=== PATIENT | male | born 1980 | race Hispanic/Latino ===

== ENCOUNTER 2017-10-29 15:11 | Emergency (ER) | payer OTHER ==
[~2017-10-29] VITALS: Ht 185.4 cm; Wt 99.8 kg
--- NOTE | 2017-10-29 15:31 | ED GI/GU/ABDOMINAL COMPLAINT ---
History of Present Illness General Chief Complaint: General Adult Stated Complaint: VOMITTING SINCE SAT AFTER HEAVY ETOH USE Source: patient Exam Limitations: no limitations Vital Signs & Intake/Output Vital Signs & Intake/Output Vital Signs Date Time Temp Pulse Resp B/P B/P Pulse O2 O2 Flow FiO2 Mean Ox Delivery Rate 10/29 1646 97 Room Air 10/29 1525 98.1 87 18 134/90 99 Room Air Allergies Coded Allergies: No Known Allergies (10/29/17) Reconcile Medications Omeprazole 40 MG CAPSULE.DR 1 CAP PO DAILY ACIF RELFUX Ondansetron (Zofran Odt) 4 MG TAB.RAPDIS 1 TAB SL TID NAUSEA Triage Note: PT STATES HE WENT TO A [place] ON SATURDAY AND OVER DID IT WITH DRINKING AND HAS NOT BEEN ABLE TO STOP DRINKING SINCE. Triage Nurses Notes Reviewed? yes Duration: day(s):, constant Timing: recent history Quality/Severity: moderate, sharpness Location: epigastric Radiation: no radiation Activities at Onset: none HPI: 37-year-old male comes into the emergency room for further evaluation of upper abdominal pain. Some associated nausea vomiting. Patient reports she drank a heavy amount of alcohol on Saturday and the symptoms began Saturday. Pain is sharp. Asked details. Comes in for further evaluation due to persistent symptoms. Denies any prior abdominal surgeries. Nothing seems to make the symptoms better or worse. (Иван Engel) Past History Travel History Traveled to [place] past 21 day No Medical History Any Pertinent Medical History? none Surgical History Surgical History: no abdominal surgeries Psychosocial History What is your primary language Tajik Tobacco Use: Never used ETOH Use: occasional use Illicit Drug Use: denies illicit drug use Family History Hx Contributory? No (Иван Engel) Review of Systems Review of Systems Constitutional: Reports: no symptoms. EENTM: Reports: no symptoms. Respiratory: Reports: no symptoms. Cardiovascular: Reports: no symptoms. GI: Reports: see HPI. Genitourinary: Reports: no symptoms. Musculoskeletal: Reports: no symptoms. Skin: Reports: no symptoms. Neurological/Psychological: Reports: no symptoms. Hematologic/Endocrine: Reports: no symptoms. Immunologic/Allergic: Reports: no symptoms. All Other Systems: Reviewed and Negative (Иван Engel) Physical Exam Physical Exam General Appearance: well developed/nourished, no apparent distress, alert, awake Head: atraumatic, normal appearance Eyes: Bilateral: normal appearance, EOMI. Ears, Nose, Throat, Mouth: hearing grossly normal, moist mucous membrane Neck: normal inspection Respiratory: no respiratory distress Cardiovascular: regular rate/rhythm Gastrointestinal: soft, non-tender Back: normal inspection Extremities: normal range of motion Skin: intact Core Measures ACS in differential dx? No Sepsis Present: No Sepsis Focused Exam Completed? No (Иван Engel) Progress Differential Diagnosis: biliary colic, gastritis, pancreatitis, PUD/GERD Plan of Care: Orders Procedure Date/time Status TROPONIN LEVEL 10/29 1523 Complete MAGNESIUM 10/29 1523 Complete LIPASE 10/29 1523 Complete LACTIC ACID 10/29 1523 Complete ETHANOL 10/29 1523 Complete COMPREHENSIVE METABOLIC PANEL 10/29 1523 Complete CBC WITHOUT DIFFERENTIAL 10/29 1523 Complete EKG 10/29 1523 Active Laboratory Tests 10/29/17 1545: Anion Gap 12, Estimated GFR > 60, BUN/Creatinine Ratio 17.0, Glucose 114 H, Lactic Acid 1.7, Calcium 9.5, Magnesium 1.9, Total Bilirubin 1.0, AST 43, ALT 45 , Alkaline Phosphatase 57, Troponin I < 0.01, Total Protein 7.7, Albumin 4.7, Globulin 3.0, Albumin/Globulin Ratio 1.6, Lipase 132, CBC w Diff NO MAN DIFF REQ , RBC 5.84, MCV 84.6, MCH 28.5, MCHC 33.7, RDW 13.8, MPV 8.4, Gran % 79.9 H, Lymphocytes % 11.9 L, Monocytes % 7.7, Eosinophils % 0.2, Basophils % 0.3, Absolute Granulocytes 8.1 H, Absolute Lymphocytes 1.2, Absolute Monocytes 0.8 H, Absolute Eosinophils 0, Absolute Basophils 0, Serum Alcohol < 10.0 Initial ED EKG: normal sinus rhythm, rate (77) Comments: 10/29/2017 6:10:54 PM Patient clinically looks well. In no apparent distress. Nontoxic-appearing. No acute findings on blood work. Symptoms are most consistent with gastritis. Patient's symptoms improved after IV medications. No acute abdomen. I do feel that the patient is stable for discharge without getting CT scan or ultrasound at this time. Follow-up with primary care doctor and return if any other concerns. Abdomen soft. No pain on exam. Denies any chest pain or shortness of breath. An EKG had been ordered upfront IN TRIAGE. (Иван Engel) Departure Departure Disposition: HOME OR SELF CARE Condition: Stable Clinical Impression Primary Impression: Abdominal pain Secondary Impressions: Gastritis Additional Instructions: Take omeprazole and Zofran ODT as prescribed. Follow-up with primary care doctor. Do not drink any alcohol. Return if any other concerns worsening symptoms. Please go over all results of today's visit with your primary care doctor. Contact your primary care doctor to let them know you were here in the emergency room. There may be nonspecific findings which may not be related to your visit today here in the emergency room but may require further evaluation and chronic monitoring by your primary care doctor. If you had a laceration today the chance of foreign body always remains. You should follow-up with your primary care doctor for recheck in 3-5 days for a wound check. If you had an x-ray done there is a chance that a fracture could have been missed on initial read and you should follow-up with your primary care doctor for repeat x-rays if symptoms persist. If your blood pressure was elevated here in the emergency room please have rechecked by [facility] primary care doctor within the next 48. If you were prescribed a narcotic here in the emergency room or any type of controlled substances you're not allowed to drive while taking this medication or operate any type of heavy machinery. Narcotics can make you feel lightheaded dizziness nausea and can cause constipation. You may need to pepper picker a stool softener. Thank you for choosing [facility] emergency room. Please return to the emergency room immediately if you have any other concerns worsening of symptoms. Departure Forms: Customer Survey General Discharge Information Prescriptions: Current Visit Scripts Omeprazole 1 CAP PO DAILY #30 CAP Ondansetron (Zofran Odt) 1 TAB SL TID #10 TAB (Иван Engel) PA/SPORTING GOODS SALESPERSON Co-Sign Statement Statement: ED Attending supervision documentation- [] I saw and evaluated the patient. I have also reviewed all the pertinent lab results and diagnostic results. I agree with the findings and the plan of care as documented in the PA's/SPORTING GOODS SALESPERSON's documentation. [X] I have reviewed the ED Record and agree with the PA's/SPORTING GOODS SALESPERSON's documentation. [] Additions or exceptions (if any) to the PAs/SPORTING GOODS SALESPERSON's note and plan are summarized below: [] (Sagar Walker DO)
[2017-10-29 15:58] LABS: ABSOLUTE BASOPHIL COUNT 0 /CUMM (0.0-0.2); ABSOLUTE EOSINOPHIL COUNT 0 /CUMM (0.0-0.7); ABSOLUTE GRANULOCYTE CT 8.1 /CUMM (1.4-6.5); ABSOLUTE LYMPH COUNT 1.2 /CUMM (1.2-3.4); ABSOLUTE MONOCYTE COUNT 0.8 /CUMM (0.10-0.60); BASOPHIL % 0.3 % (0.0-2.0); EOSINOPHIL % 0.2 % (0-5); GRANULOCYTE % 79.9 % (42.2-75.2); HEMATOCRIT 49.4 % (42-52); MEAN CORPUSCULAR HGB 28.5 PG (27.0-31.0); MEAN CORPUSCULAR HGB CONC 33.7 G/DL (33.0-37.0); MEAN CORPUSCULAR VOLUME 84.6 FL (80.0-94.0); MEAN PLATELET VOLUME 8.4 FL (7.4-10.4); PLATELET COUNT 264 /CUMM (130-400); RBC DISTRIBUTION WIDTH 13.8 % (11.5-14.5); RED BLOOD CELL CT 5.84 /CUMM (4.70-6.10); WHITE BLOOD CELL COUNT 10.1 /CUMM (4.8-10.8)
[2017-10-29] MEDS ORDERED: ZOFRAN ODT4 M1 SL (17:45)
[2017-10-29] MEDS ORDERED: OMEPRAZOLE40 M1 PO (17:45)
[2017-10-29 18:30] VITALS: BP 137/73
== END 2017-10-29 19:10 ==
LOC: ERH 15:11
PROVIDERS: Physician Assistant
DX: K29.70 Gastritis, unspecified, without bleeding (principal); R10.13 Epigastric pain; R11.2 Nausea with vomiting, unspecified; F10.10 Alcohol abuse, uncomplicated
CPT/HCPCS: 93005; 93010; 96361; 96374; 96375; G0480; J2405